=== PATIENT | female | born 1945 | race Caucasian/White ===

== ENCOUNTER 2019-07-21 09:42 | Day surgery (SDC) | payer MEDICARE ==
[~2019-07-21] VITALS: Ht 160 cm; Wt 106.2 kg
[~2019-07-21 09:42] MED LIST: BUPIVACAINE/PF-EPI 0.25% 1:200K ONE; CYAN100072 PO; HEPARIN 1,000 UNITS/ML, 10ML ONE; IBUP200C8 PO; INDOCYANINE GREEN 25 MG VIAL ONE
[2019-07-21] MEDS ORDERED: FENTANYL PF 250 MCG/5ML ONE ×3 (10:17→12:16)
[2019-07-21] MEDS ORDERED: LACTATED RINGERS 1,000 ML IV STA (10:18)
[2019-07-21 10:19] VITALS: BP 164/90
[2019-07-21] MEDS ORDERED: GABAPENTIN 300 MG CAPSULE PO STA (10:20)
[2019-07-21] MEDS ORDERED: DEXAMETHASONE 4 MG/ML, 1ML ONE (10:20)
[2019-07-21] MEDS ORDERED: GLYCOPYRROLATE 0.2MG/1ML, 5ML ONE (10:20)
[2019-07-21] MEDS ORDERED: NEOSTIGMINE 1 MG/ML, 10ML ONE (10:20)
[2019-07-21] MEDS ORDERED: ACETAMINOPHEN 500 MG TABLET PO STA (10:20)
[2019-07-21] MEDS ORDERED: CEFAZOLIN 1,000 MG ONE (10:20)
[2019-07-21] MEDS ORDERED: ROCURONIUM 10MG/ML,5ML ONE ×2 (10:20→11:16)
[2019-07-21] MEDS ORDERED: ONDANSETRON 2MG/ML, 2ML ONE (10:20)
[2019-07-21] MEDS ORDERED: PROPOFOL 10 MG/ML, 20ML ONE (10:20)
[2019-07-21] MEDS ORDERED: CHLORHEXIDINE 15 ML UDC MM STA (10:21)
[2019-07-21] MEDS ORDERED: LACTATED RINGERS 1,000 ML IV SCH (10:30)
[2019-07-21] MEDS ORDERED: OXYcodone 5 MG/5 ML ORAL.SOL UDC PO PRN (11:00)
[2019-07-21] MEDS ORDERED: HALOPERIDOL 5 MG/ML IV PRN (11:00)
[2019-07-21] MEDS ORDERED: MEPERIDINE/PF 25MG/ML,1ML IVPush PRN (11:00)
[2019-07-21] MEDS ORDERED: PHENYLEPHRINE 10 MG/ML ONE (11:00)
[2019-07-21] MEDS ORDERED: ACETAMINOPHEN 325 MG TABLET PO PRN (11:00)
[2019-07-21] MEDS ORDERED: HYDROmorphone 2 MG/ML, 1ML IVPush PRN (11:00)
[2019-07-21] MEDS ORDERED: hydrALAzine 20 MG/ML, 1ML IV PRN (11:00)
[2019-07-21] MEDS ORDERED: MORPHINE SULFATE 4 MG/ML, 1ML IVPush PRN (11:00)
[2019-07-21] MEDS ORDERED: PROMETHAZINE 25 MG/ML, 1ML IV PRN (11:00)
[2019-07-21] MEDS ORDERED: LABETALOL 5MG/ML, 20ML IV PRN (11:00)
[2019-07-21] MEDS ORDERED: CEFOTETAN PMX 2GM/50ML 50 ML ONE (11:02)
[2019-07-21] MEDS ORDERED: hydrALAzine 20 MG/ML, 1ML ONE (11:59)
[2019-07-21] MEDS ORDERED: ONDA4TAB7 PO (13:00)
[2019-07-21] MEDS ORDERED: OXYC-302 PO (13:00)
[2019-07-21] MEDS ORDERED: PROMETHAZINE 25 MG/ML, 1ML ONE (13:27)
[2019-07-21] MEDS ORDERED: FENTANYL PF 100 MCG/2ML ONE (13:27)
[2019-07-21] MEDS: FENTANYL PF 100 MCG/2ML IV PRN ×3 (13:36→14:09)
[2019-07-21] MEDS ORDERED: CHLORHEXIDINE 15 ML UDC MM ONE (14:00)
== END 2019-07-21 18:10 | disposition home or self-care (01) ==
LOC: OUT 09:42
PROVIDERS: ATTEND Specialist
DX: C54.1 Malignant neoplasm of endometrium (principal); N84.1 Polyp of cervix uteri; N88.8 Other specified noninflammatory disorders of cervix uteri; N80.0 Endometriosis of uterus; I10 Essential (primary) hypertension; E78.5 Hyperlipidemia, unspecified; G50.0 Trigeminal neuralgia; E03.9 Hypothyroidism, unspecified; E66.01 Morbid (severe) obesity due to excess calories; Z68.41 Body mass index [BMI] 40.0-44.9, adult; Z79.890 Hormone replacement therapy; Z79.899 Other long term (current) drug therapy
CPT/HCPCS: 36415; 38570; 38900; 58552; 74018; 86850; 86900; 86923; 88112; 88305; 88309; 88329; 88333; J0360; J0690; J1100; J1644; J2370; J2405; J2550; J2704; J2710; J3010; J3490; J7120

== ENCOUNTER → 2019-10-19 | Outpatient (CLI) | payer MEDICARE ==
[~2019-10-19] MED LIST changes: -BUPIVACAINE/PF-EPI 0.25% 1:200K ONE; +CARB200T4 PO; -HEPARIN 1,000 UNITS/ML, 10ML ONE; -INDOCYANINE GREEN 25 MG VIAL ONE; +LEVO112T2 PO; +ONDA4TAB7 PO; +OXYC-302 PO
== END | disposition home or self-care (01) ==
LOC: STAR 08:00
PROVIDERS: ATTEND Urology
DX: Z01.818 Encounter for other preprocedural examination (principal); Z11.59 Encounter for screening for other viral diseases
CPT/HCPCS: 36415; 87635